=== PATIENT | male | born 1980 | race Caucasian/White ===

== ENCOUNTER 2017-04-17 18:21 | Emergency (ER) | payer MEDICAID, MEDICARE ==
[~2017-04-17] VITALS: Ht 172.7 cm; Wt 58.9 kg
[2017-04-17] MEDS ORDERED: NALOXONE 0.4 MG/ML, 1ML ONE (18:30)
[2017-04-17] MEDS ORDERED: NALOXONE 0.4 MG/ML, 1ML IVPush PRN (18:30)
[2017-04-17] MEDS ORDERED: KETO200T41 PO (18:47)
[2017-04-17] MEDS ORDERED: ALPR2TAB5 PO (18:47)
[2017-04-17] MEDS ORDERED: CALC0.25 PO (18:47)
[2017-04-17] MEDS ORDERED: PHEN30TA PO (18:47)
[2017-04-17] MEDS ORDERED: CLON2TAB2 PO (18:47)
[2017-04-17] MEDS ORDERED: PLEASE ENTER HEIGHT AND WEIGHT MC SCH (19:00)
[2017-04-17] MEDS ORDERED: PLEASE ENTER ALLERGIES MC SCH ×2 (19:00)
[2017-04-17 21:43] VITALS: BP 88/58
== END 2017-04-17 21:45 | disposition home or self-care (01) ==
LOC: ED 21:05
DX: T40.1X1A Poisoning by heroin, accidental (unintentional), initial encounter (principal); F12.20 Cannabis dependence, uncomplicated; Y92.89 Other specified places as the place of occurrence of the external cause
CPT/HCPCS: 99283